=== PATIENT | male | born 1960 | race Caucasian/White ===

== ENCOUNTER 2020-02-05 09:25 | Emergency (ER) | payer OTHER ==
[~2020-02-05] VITALS: Ht 185.4 cm; Wt 108.9 kg
[2020-02-05] MEDS ORDERED: METFORMIN HCL500 M3 PO (09:44)
[2020-02-05] MEDS ORDERED: COZAAR 25 MG TA25 M2 PO (09:44)
[2020-02-05] MEDS ORDERED: TERAZOSIN HCL10 MG PO (09:45)
[2020-02-05] MEDS ORDERED: PROAIR HFA8.5 GM INH (09:45)
[2020-02-05 09:50] LABS: ABSOLUTE BASOPHILS 0.1 thou/uL (0.0-0.2); ABSOLUTE EOSINOPHILS 0.2 thou/uL (0.0-0.7); ABSOLUTE LYMPHOCYTES 1.7 thou/uL (0.8-5.3); ABSOLUTE MONOCYTES 0.5 thou/uL (0.0-1.2); ABSOLUTE NEUTROPHILS 6.8 thou/uL (1.6-8.1); BASOPHILS 0.8 %; EOSINOPHILS 1.9 %; HEMATOCRIT 45.7 % (42.0-52.0); HEMOGLOBIN 15.5 gm/dL (14.0-18.0); MCH 29.3 pg (26.0-34.0); MCV 86.2 fL (80.0-100.0); MONOCYTES 5.9 %; MPV 8.8 fl. (7.2-11.1); NUCLEATED RBCS 0 /100WBC; PLATELET COUNT* 173 thou/uL (150-400); POLYS 73.4 %; RDW-CV 13.8 % (10.5-14.5); WBC 9.3 thou/uL (4.0-11.0)
[2020-02-05 09:57] LABS: CALCIUM 8.6 mg/dL (8.5-10.1); CREATININE 1.4 mg/dL (0.6-1.3); POTASSIUM 4.2 mmol/L (3.5-5.1)
[2020-02-05 10:00] LABS: APTT 27.1 Seconds (25.0-31.3); PROTIME 10.6 Seconds (9.20-11.50)
[2020-02-05 10:10] LABS: ALBUMIN 3.4 g/dL (3.4-5.0); CK-MB MASS 2.6 ng/mL (<0.5-3.6); MAGNESIUM 1.7 mg/dL (1.8-2.4); TOTAL BILIRUBIN 0.2 mg/dL (<0.1-1.0); TOTAL PROTEIN 7.1 g/dL (6.4-8.2)
--- NOTE | 2020-02-05 15:02 | EXE ---
[place] [id number] STRESS ECHOCARDIOGRAM Name: GABBY LITTLE Room: [facility]#: [id number] Admission: 02/05/20 Attend Phys: Discharge: Date of : 60 Date of Service: 02/05/20 1500 Report #: [id number] THIS REPORT FOR: cc: Angie Bynum MD, Ghazal A. MD Liston, Michael J. MD [facility] ~ APPROVED REPORT Study performed: 02/05/2020 14:04:33 Exam: Stress Echocardiogram Indication: Dyspnea , Chest pain Patient Location: ER Stress Nurse: Leighann Cleary RN Supervising Physician: Eliseo Savage MD Status: routine Ht: 6 ft 1 in HR: 69 bpm BP: 133/83 mmHg Rhythm: NSR Medical History Medications: Losartan, Terazosin Allergies: No known drug allergies Cardiac Risk Factors: Smoking, HTN, DM Procedure The patient underwent an Exercise Stress Test using the Kervin Protocol. Blood pressure, heart rate, and EKG were monitored. An Echocardiogram was performed by body and frame technician in four stages in quad fashion. At peak stress, four selected images were obtained and placed side by side with resting images for comparison. Stress Test Details Stress Test: Exercise stress testing was performed using a Kervin protocol. HR Resting HR: 69 bpm Max Heart Rate (APMHR): 161 bpm Max HR Achieved: 129 bpm Target HR (85% APMHR): 136 bpm % of APMHR: 80 Recovery HR: 92 bpm HR response to stress: [place] [id number] STRESS ECHOCARDIOGRAM Name: GABBY LITTLE Room: [facility]#: [id number] Admission: 02/05/20 Attend Phys: Discharge: Date of : 60 Date of Service: 02/05/[address] [facility] Report #: [id number] Resting BP: 133/83 mmHg Max BP: 233/86 mmHg Recovery BP: 170/75 mmHg BP response to stress: Abnormal hypertensive response to stress. ECG Resting ECG: Sinus Rhythm Stress ECG: Sinus Tachycardia ST Change: None Arrhythmia: None Recovery ECG: Sinus Rhythm Recovery ST Change: None Recovery Arrhythmia: None Clinical Reason for Termination: Maximal effort, hip discomfort Exercise duration: 6 min sec Highest Stage Achieved: Stage 2: 2.5 mph at 12% grade. Exercise capacity: 7.05 METs The patient tolerated centimeters protocol exercise without significant cardiac symptoms. Exercise was stopped due to right hip pain. Stress ECG Conclusion The baseline 12-lead EKG shows sinus rhythm without ST segment or T-wave abnormalities. EKGs during and post exercise showed sinus rhythm and sinus tachycardia without significant ST segment T wave changes when compared to baseline. There were no stress-induced arrhythmias. Pre-Stress Echo The resting Echocardiogram showed normal left ventricular contractility with an estimated Ejection Fraction of about 55-60%. The resting echocardiogram demonstrated normal wall motion in all wall segments. Post-Stress Echo The stress Echocardiogram showed normal left ventricular contractility with an estimated Ejection Fraction of about >70%. Compared to rest, there were no stress-induced wall motion abnormalities. Normal augmentation of wall motion in all segments on post stress images. Clinical No clinical or [place] [id number] STRESS ECHOCARDIOGRAM Name: GABBY LITTLE Room: [facility]#: [id number] Admission: 02/05/20 Attend Phys: Discharge: Date of : 60 Date of Service: 02/05/20 1500 Report #: [id number] Conclusion Clinical Response: Non-ischemic Exercise Capacity: Below Average Stress ECG Response: Non-ischemic Stress Echo Images: Non-ischemic Stress echocardiogram showed no echocardiographic or electrocardiographic evidence of inducible ischemia. Left jugular systolic function is normal at baseline and augmented normally with exercise stress. This is a low risk study. Other Information Study Quality: Good <Conclusion> Stress echocardiogram showed no echocardiographic or electrocardiographic evidence of inducible ischemia. Left jugular systolic function is normal at baseline and augmented normally with exercise stress. This is a low risk study. <ELECTRONICALLY SIGNED> By: Eliseo [place] MD, [facility] 02/05/201499 99 99 Eliseo [place] MD, FACC /INF
[2020-02-05 15:33] VITALS: BP 135/82
--- NOTE | 2020-02-05 16:30 | EKG ---
[place] [address] ELECTROCARDIOGRAM REPORT Name: GABBY LITTLE Room: 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[id number] Requested By: Luis Alberto Rodriguez Order Number: [id number] MD: Eliseo [place] Measurements Intervals [place] Rate: 79 P: 77 [place]: 160 QRS: -90 QRSD: 101 T: 73 QT: 375 QTc: 430 Interpretive Statements Sinus rhythm Incomplete RBBB and LAFB Baseline wander in lead(s) V2,V3 No previous ECG available for comparison Electronically Signed On 02-05-2020 16:28:23 CDT by Eliseo Savage [email or web address] <ELECTRONICALLY SIGNED> By: Eliseo [place] MD, [facility] 02/05/20 1628 0927 6 Eliseo [place] MD, [facility] /EPI
== END 2020-02-05 15:38 | disposition home or self-care (01) ==
LOC: M.ERS 09:25
PROVIDERS: Emergency Medicine
DX: R07.89 Other chest pain (principal); I10 Essential (primary) hypertension; E11.9 Type 2 diabetes mellitus without complications; N40.0 Benign prostatic hyperplasia without lower urinary tract symptoms; F17.210 Nicotine dependence, cigarettes, uncomplicated